=== PATIENT | male | born 1935 | race African-American/Black ===

== ENCOUNTER 2017-02-04 15:12 | Inpatient (IN) | payer MEDICARE, OTHER ==
--- NOTE | ~2017-02-04 | CN ---
Consultation Report [facility] [address] [place]. [address] NAME: MATHIEU STEWART : 36 STATUS : ADM IN PAT#: [id number] AGE: 82 ADM/REG DATE : 02/04/17 MR#: [id number] REPORT SERV DATE: 02/07/17 DICTATED BY: VASU ROBERTS DATE: 02/07/17 REPORT STATUS : Draft TRANSCRIBED BY: MODL DATE: 02/07/17 PALLIATIVE CARE CONSULTATION DATE OF CONSULTATION: 02/07/2017 ALLERGIES: NONE LISTED. REASON FOR CONSULTATION: Multisystem compromise in an elderly gentleman with end-stage renal disease. Mr. Stewart, an 82-year-old gentleman, was currently residing at [facility] after a stay at [facility] and, transitioned to [facility] where he evidently did not progress as hoped. In the course of care there, he was found to have rectal bleeding and was sent to the emergency room. Interestingly, despite being hypotensive, he was actually acidotic with a lactate of 4.8, he was hyperventilating with a pCO2 of 19, and his INR was elevated even though he has been on chronic Coumadin for some time. His hemoglobin at that time was actually elevated from his baseline. Since admission, he has had progression of his lactic acidemia, he has had labile blood pressures and difficulty assessing circulation. He has been unable to tolerate dialysis on at least 1 occasion. His last dialysis was 02/05. According to that record, his blood pressure was actually as low as 88/50. He did not undergo dialysis today. There has been some discussion in the family and with the medical staff regarding the appropriateness of resuscitation and what the long-term care options for this gentleman are. PAST MEDICAL HISTORY: From what I can tell from the records, the patient has what appears to be a significant ischemic cardiomyopathy in the setting of prior coronary disease and previous coronary bypass surgery. It appears that his ejection fraction was in the 50s; however, it appears he is now back in the 20s. One wonders if he has had a more recent [place]. He has chronic atrial fibrillation. Peripheral vascular insufficiency as well as a history of gout and hyperlipidemia. His sister who is at the bedside tells me he had hemorrhoid surgery about 3 years ago, required a Muñoz catheter for urinary retention, and that the catheter may have not been properly placed resulting in outflow renal failure which subsequently led him to dialysis. Interestingly I note that in 2011 when he was here with the abdominal pain complaints, many of the CT findings reported on today's scan in fact are chronic including an element of anasarca. SOCIAL HISTORY: The patient is a remote smoker but does not do so currently. He is currently residing in a nursing facility and some discussion as to where he will be going from there certainly has been a consideration as he is not really a rehab candidate and I do not know if the residential treatment within the nursing environment of a residential are going to be satisfactory to the family. Unfortunately, the patient has become unable to give us much of a history. His speech is garbled, intermittently audible but for the most part, not appropriate. This is relatively new for him. No history of illicit drug use. No Consultation Report [address] [place]. [address] NAME: MATHIEU STEWART : 36 STATUS : ADM IN PAT#: [id number] AGE: 82 ADM/REG DATE : 02/04/17 MR#: [id number] REPORT SERV DATE: 02/07/17 DICTATED BY: VASU ROBERTS DATE: 02/07/17 REPORT STATUS : Draft TRANSCRIBED BY: DENNY DATE: 02/07/17 alcohol use. 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 He does have family members but he is single. FAMILY HISTORY: Includes coronary disease, hypertension, diabetes, but as far as I can tell, no premature heart disease. The system review is limited by the patient's cognitive status. PHYSICAL EXAMINATION: GENERAL: Shows an elderly appearing gentleman who opens his eyes to his name. His speech is garbled and really incomprehensible. He does follow my finger when I ask him to. VITAL SIGNS: Current blood pressure is 120/70, his heart rate is 138 in atrial fibrillation, respiratory rate 16 and not labored. He is afebrile. HEENT: The head appears to be normocephalic. There is some bitemporal wasting. His eyes show muddy anicteric sclerae. His pupils appear to be reactive. Bilateral arcus senilis is noted. His dentition is present but markedly abnormal in terms of alignment. NECK: Auscultation of his neck shows no obvious bruits. No masses are appreciated. CHEST: Auscultation of his lungs shows essentially clear lung ortega at this time although in the bases, the breath sounds are decreased and I do hear some crackles. HEART: The heart shows an irregularly irregular rhythm. I do not really appreciate a murmur although there is one documented. No gallops are noted. His pulses are decreased throughout. ABDOMEN: The abdomen is soft, relatively nontender. Bowel sounds, in fact, are present. They are decreased. EXTREMITIES: Show 1+ edema and he does appear to have some general swelling of his entire body consistent with the findings on the CAT scan. No obvious breakdown or wounds are identified. NEUROLOGICAL: The patient appears to be grossly encephalopathic at this point. He does, by report of his sister, move all his extremities although I did not elicit or try to elicit any significant motor function. LABORATORY DATA: Reviewed and is as noted above. IMPRESSION: Impression is that of an elderly gentleman, 82 years old with a history of obstructive uropathy complicated by a Muñoz catheter placement that led eventually to dialysis approximately three years ago. He is now having significant evidence of debility, poor function and possible acute cognitive on top of chronic cognitive dysfunction. He does appear to have evidence of decrease in his cardiac function, lactic acidemia of uncertain etiology and now a new clot in the right subclavian area. He does have a previous brachiocephalic stent on the right side in the venous circulation. He remains in atrial fibrillation, he has evidence of coagulopathy possibly due to shock and/or nutritional factors. He has mildly elevated liver function tests but I do not see any evidence of significant or life-threatening liver failure. Consultation Report [address] [place]. [address] NAME: MATHIEU STEWART : 36 STATUS : ADM IN PAT#: [id number] AGE: 82 ADM/REG DATE : 02/04/17 MR#: [id number] REPORT SERV DATE: 02/07/17 DICTATED BY: VASU ROBERTS DATE: 02/07/17 REPORT STATUS : Draft TRANSCRIBED BY: DENNY DATE: 02/07/17 We will continue to follow the patient with you and it is our intention to help to facilitate some form of decision making as his condition stabilizes or even declines. He has been made a DNR which I think is highly appropriate. Whether or not hospice has a role in his management or not remains to be determined. We appreciate the opportunity to see your patient in consultation and we will certainly stay involved and try and assist with family communication, management of dynamics, and possible transition and care more towards comfort. Consultation is a total of 55 minutes. SEAMUS/DENNY Vasu Roberts M.D. / [id number] CC: Jude Mai M.D.
--- NOTE | ~2017-02-04 | CN ---
Consultation Report [facility] [address] [place]. [address] NAME: MATHIEU STEWART : 36 STATUS : ADM IN PAT#: [id number] AGE: 82 ADM/REG DATE : 02/04/17 MR#: [id number] REPORT SERV DATE: 02/05/17 DICTATED BY: JORI PERES DATE: 02/04/17 REPORT STATUS : Draft TRANSCRIBED BY: MODL DATE: 02/04/17 CONSULTATION DATE OF CONSULTATION: 02/04/2017 TIME: 1800 hours. Seen in MICU bed 4. HISTORY OF PRESENT ILLNESS: The patient is an 82-year-old male with longstanding history of end-stage renal disease and developed of nonischemic cardiomyopathy. Apparently, he was at a SNF today when he passed bright red blood per rectum. He also is treated for chronic hypotension on midodrine. Came into ER with diagnosis of chronic hypotension and possible shock with elevated lactic acid level. PAST MEDICAL HISTORY: Significant for atrial fibrillation, peripheral vascular disease, gout, GERD, anemia, chronic bilateral effusions, coronary artery disease status post CABG for [place] in the past, history of atrial fibrillation and ventricular tachycardia. ALLERGIES: INCLUDE LISINOPRIL. HOME MEDICATIONS: Include aspirin, furosemide, Lopressor, Renvela, simvastatin, and warfarin. PHYSICAL EXAMINATION: VITAL SIGNS: Currently, blood pressure 95/50, pulse 90, slightly irregular, saturation 90%. GENERAL: The patient is awake. HEENT: Head is normocephalic. Sclerae and conjunctiva are clear. NECK: Slight JVD. CHEST: Decreased breath sounds at the base. CARDIAC: S1 and S2. Slightly irregular. PMI is displaced laterally. ABDOMEN: Soft and nontender. Slight hepatomegaly. EXTREMITIES: Slight edema of lower extremities. There is marked edema of the right arm where an old shunt was. He does have a shunt withdrawal in the left arm. NEUROLOGIC: Grossly intact. LABORATORY DATA: Show procalcitonin 1.93. Sodium 137, potassium 5.2, chloride 94, CO2 of 25, BUN 49, creatinine 5.1, glucose 129, calcium 9.4, magnesium 2.2, albumin 3.1, total protein 6.6, direct bilirubin 1.8. Total bilirubin 1.8, alkaline phosphatase 243, ALT 118, AST 88, troponin 2.26. His GFR is less than 10. CBC shows an H and H of 13.5 and 37.9, white count 10,100, platelet count 117,000. PTT 47.9, INR 4.3, lactate 4.8. Chest x-ray shows cardiomegaly, small pleural effusion status post bypass surgery. Arterial blood gas showed a pH of 7.59, pCO2 of 19, PO2 of [address] of abdomen and pelvis showed bilateral moderate-sized pleural effusions, body anasarca, small amount Consultation Report [place] [id number] [facility] [place]. [address] NAME: MATHIEU STEWART : 36 STATUS : ADM IN PAT#: [id number] AGE: 82 ADM/REG DATE : 02/04/17 MR#: [id number] REPORT SERV DATE: 02/05/17 DICTATED BY: JORI PERES DATE: 02/04/17 REPORT STATUS : Draft TRANSCRIBED BY: MODL DATE: 02/04/17 of ascites, prostate enlarged, end-stage kidney disease seen. No mention is made of the liver at this time. IMPRESSION: 1. Chronic ischemic cardiomyopathy. 2. Atrial fibrillation. 3. Depressed ejection fraction. 4. Bilateral effusions. 5. End-stage renal disease. 6. Atrial fibrillation. PLAN: Continue present therapy. May need vasopressors for blood pressure control. Access will be difficult. RP/SPENSERL Jori Peres M.D. / [id number] CC: Jude Mai M.D.
--- NOTE | ~2017-02-04 | CN ---
Consultation Report [facility] [address] [place]. [address] NAME: MATHIEU STEWART : 36 STATUS : ADM IN PAT#: [id number] AGE: 82 ADM/REG DATE : 02/04/17 MR#: [id number] REPORT SERV DATE: 02/05/17 DICTATED BY: DIMAS GARDNER DATE: 02/04/17 REPORT STATUS : Draft TRANSCRIBED BY: MODEdna DATE: 02/04/17 CARDIOLOGY CONSULTATION DATE OF CONSULTATION: INDICATION: Systolic heart failure, coronary artery disease, possible sepsis with lactic acidosis. HISTORY: The patient is an 82-year-old male, who is usually cared for through the [facility]. He has end-stage renal disease, dialyzing Friday, Friday, Friday at [facility] in [place]. He has a history of three-vessel coronary artery disease and a reported history of coronary bypass surgery. He was admitted 12/22/2016 with increasing breathlessness to the [facility]. He is admitted through the ER today with weakness and bright red blood per rectum. He is an extremely poor historian. PAST MEDICAL HISTORY: Is from review of outside records. CURRENT HOME MEDICATIONS: Acetaminophen 325 q.6, ammonium lactate lotion applied twice a day, aspirin 81 a day, atorvastatin 10 at h.s., docusate sodium 100 b.i.d., famotidine 20 a day, hydrocodone 5/325 q.8 p.r.n., lisinopril 2.5 q.a.m., Megace 10 mL p.o. with breakfast, melatonin 1.5 mg at bedtime, metoprolol tartrate 12.5 b.i.d., midodrine 5 b.i.d., Nephrocaps daily, promethazine 25 q.6, and warfarin as directed. ALLERGIES OR INTOLERANCES: None known. SOCIAL HISTORY: Remote history of tobacco use. FAMILY HISTORY: Positive for hypertension, stroke, and coronary artery disease. PHYSICAL EXAMINATION: GENERAL: An 82-year-old white male, who is arousable and conversant, although answers are short with minimal insight. VITAL SIGNS: On arrival, blood pressure 80/55, pulse 109 and regular, respirations 19. SKIN: Dry with tenting. HEENT: Normocephalic. NECK: JVD is not elevated. No carotid bruits. CHEST: No crackles. CARDIAC: S1 variable. S2 singular. ABDOMEN: Tender, although there is no rebound. EXTREMITIES: Without edema. No clubbing. NEUROLOGIC: No focal deficits. Consultation Report [place] [facility] [id number] [place]. [address] NAME: MATHIEU STEWART : 36 STATUS : ADM IN PAT#: [id number] AGE: 82 ADM/REG DATE : 02/04/17 MR#: [id number] REPORT SERV DATE: 02/05/17 DICTATED BY: DIMAS GARDNER DATE: 02/04/17 REPORT STATUS : Draft TRANSCRIBED BY: MODL DATE: 02/04/17 LABORATORY DATA: On arrival, ECG suggested atrial fibrillation, although the quality of the tracing is extremely poor. BUN 49, creatinine 5.01, glucose 129, white count 10.1, hemoglobin 13.5, lactate 4.8. INR 4.3. IMPRESSION: 1. Severe chronic systolic heart failure with EF less than 20%. The patient has bilateral pleural effusions. 2. End-stage renal disease. 3. Lactic acidosis. He is presently undergoing evaluation for sepsis. He has been empirically started on antibiotics while cultures and other laboratory studies are pending. He may ultimately require inotropic support. We will try to get copies of his outside records from [facility]. Note that he apparently had an arteriogram, which showed a BARRIENTOS to the LAD vein graft to D1 and D2 as well as ramus. At that time, the echo from October was reported to show an ejection fraction of 55% with mild diastolic dysfunction. The current clinical presentation as well as echo findings are a dramatic departure from this baseline state. For the present, we will provide cardiac support. He is not in a position where invasive studies are appropriate. Further recommendations forthcoming. MARTIN/DENNY Dimas Gardner M.D. / [id number] CC: Jude Mai M.D. [facility]
--- NOTE | ~2017-02-04 | DS ---
Discharge Summary [address] [place]. [address] NAME: MATHIEU STEWART : 36 STATUS : DIS IN PAT#: [id number] AGE: 82 ADM/REG DATE : 02/04/17 MR#: [id number] REPORT SERV DATE: 02/21/17 DICTATED BY: ROSA ALLEN DATE: 02/20/17 REPORT STATUS : Draft TRANSCRIBED BY: MODEdna DATE: 02/20/17 Data Collection from hospitalization DISCHARGE DIAGNOSES: 1. End-stage cardiomyopathy. 2. End-stage renal disease. 3. Hypotension. 4. Hypoglycemia. 5. Anemia. 6. Gastroesophageal reflux disease. 7. Gout. 8. Hyperlipidemia. 9. Peripheral vascular disease. 10.Atrial fibrillation. 11.Coronary artery disease. 12.Remote myocardial infarction. 13.Former tobacco. CONSULTATIONS: 1. Gal Gardner M.D. 2. Abhishek Peres M.D. 3. Michoacano Roberts M.D. PROCEDURES PERFORMED: 1. CT scan of the abdomen and pelvis without contrast on 02/04/2017. 2. Injection of left internal jugular Angiocath under fluoroscopic assistance and over the wire exchange of left internal jugular Angiocath for a 7-Finnish triple-lumen central venous catheter on 02/04/2017. 3. Venous Doppler ultrasound of the right upper extremity on 02/05/2017. DISPOSITION: [facility]. HOSPITAL COURSE: This was an 82-year-old man who resided at a local skilled facility and chronically dialyzed at [facility] on Mondays, Wednesdays, and Fridays. He apparently was undergoing bathing and they noted blood per rectum and he was sent to the emergency room. He was found to have a blood pressure of 80/50, and apparently, he had underlying cardiac issue with a history of chronic hypotension, on midodrine. He was found to have a lactic acid of 4.8. INR level was elevated at 4.3 and he had been on Coumadin for chronic atrial fibrillation as well as aspirin. Hemoglobin was actually 13.5 with a mild decline in platelet count to 117. He was admitted to the hospital at this time for further evaluation and treatment. Upon admission, labs were going to be obtained as well as cultures. Antibiotics were going to began. A CT scan of the abdomen and pelvis without contrast was performed. The patient underwent placement of a central venous catheter. He was seen by Dr. Gal Gardner regarding systolic heart failure, coronary artery disease, possible sepsis with lactic acidosis. On his arrival, his ECG had suggested atrial fibrillation, although the quality of the tracing was extremely poor. Creatinine level was 5.01. White count was 10.1. He was currently Discharge Summary [address] [address] NAME: MATHIEU STEWART : 36 STATUS : DIS IN PAT#: [id number] AGE: 82 ADM/REG DATE : 02/04/17 MR#: [id number] REPORT SERV DATE: 02/21/17 DICTATED BY: ORSA ALLEN DATE: 02/20/17 REPORT STATUS : Draft TRANSCRIBED BY: DENNY DATE: 02/20/17 undergoing evaluation for sepsis. The patient had bilateral pleural effusions. He had severe chronic systolic heart failure with ejection fraction less than 20%. It was felt that he may ultimately require inotropic support. Echocardiogram in October had shown an ejection fraction of 55% with mild diastolic dysfunction. The current clinical presentation as well as echo findings were atraumatic departure from his baseline state. Cardiac support would be provided. He was not in a position where invasive studies were appropriate. He was also seen by Dr. Abhishek Peres. He was felt to have chronic ischemic cardiomyopathy, depressed ejection fraction, and atrial fibrillation. He also had bilateral effusions. His present therapy was going to be continued. It was felt that he may need vasopressor for blood pressure control. Access would be difficult. On 02/05/2017, he had 2+ edema of the right upper extremity. The patient was lethargic, but was responsive. He had been agitated during the night. INR level was 4.7. Hemodialysis therapy was performed. There was little change in his cardiovascular status. Venous Doppler ultrasound of the right upper extremity revealed occlusion of the subclavian on the right secondary to organized acute thrombus which also extended into the cephalic superficial system. The distal axillary brachial systems were patent. On 02/06/2017, he was minimally responsive. He was hypoglycemic. The next day, he seemed to be more awake. Breathing was less labored. He had an ejection fraction of 20%-25%. His prognosis remained poor. Dialysis had been stopped. He was seen in consultation by Dr. Michoacano Roberts. He agreed that the patient should be a DNR code status. A dose of IV vancomycin had been given. He remained lethargic, but responsive. There was no evidence for recent myocardial infarction on ECG. He did have some prolonged periods of apnea noted by the nursing staff. His condition continued to decline. In the early childhood assistant hours of 02/10/2017, he was found without blood pressure, pulse, or respirations. He was pronounced at 12:55 a.m. and released to the above-mentioned home. Information collected by: Teresa Perez I submit the above information as my discharge summary. TG/MODL Rosa Allen M.D. / [id number] CC: Fredo Samayoa M.D. Robert Warren Goldmann, M.D.
--- NOTE | ~2017-02-04 | HP ---
History And Physical [place] [id number] [place]. [address] NAME: MATHIEU STEWART : 37 STATUS : ADM IN [facility]#: [id number] AGE: 82 ADM/REG DATE : 02/04/17 MR#: [id number] REPORT SERV DATE: 02/04/17 DICTATED BY: ROSA ALLEN DATE: 02/04/17 REPORT STATUS : Draft TRANSCRIBED BY: MODEdna DATE: 02/04/17 DATE OF ADMISSION: 02/04/2017 INDICATION FOR ADMISSION: Shock. HISTORY OF PRESENT ILLNESS: Mr. Stewart is an 82-year-old male who resides at a local skilled facility and chronically dialyzes at [facility] on Friday, Friday, and Friday. He apparently was undergoing bathing, and they noted blood per rectum and sent him to the emergency room. He was found to have a blood pressure of 80/50, and apparently he has underlying cardiac issues with history of chronic hypotension on midodrine. He was noted to have a lactic acid of 4.8. His ABG demonstrated pH of 7.59, pCO2 of 19, pO2 of 129. His INR was elevated at 4.3 as he has been on Coumadin for chronic atrial fib as well as aspirin. His hemoglobin was actually 13.5 with a mild decline in platelet count to 117. He was admitted for further evaluation of his shock. PAST MEDICAL HISTORY: 1. End-stage renal disease, dialyzing Friday, Friday, Friday at [facility]. 2. Coronary artery disease, prior CABG 1 and remote [place]. 3. Atrial fibrillation; chronic atrial fibrillation with possible history of remote ventricular tachycardia. 4. Peripheral vascular disease. 5. Hyperlipidemia. 6. Gout. 7. Gastroesophageal reflux disease. 8. Anemia. 9. Chronic bilateral pleural effusions. 10.Hemorrhoidectomy. SOCIAL HISTORY: [facility]. No tobacco use for 18-20 years. No alcohol use. 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 He is single and has a supportive son/brother. FAMILY HISTORY: Positive for diabetes, hypertension, coronary artery disease. ALLERGIES: NONE KNOWN. MEDICATIONS: Coumadin, aspirin, lisinopril, Megace, melatonin, Lopressor, midodrine, Nephrocaps, Phenergan, acetaminophen, ammonium lactate ointment, Lipitor, Colace, Pepcid, and hydrocodone. REVIEW OF SYSTEMS: The patient opens eyes, focalizes minimally, denies pain, denies shortness of breath. Otherwise 12-point review of systems is negative. PHYSICAL EXAMINATION: History And Physical [address] [place]. [address] NAME: MATHIEU STEWART : 37 STATUS : ADM IN PAT#: [id number] AGE: 82 ADM/REG DATE : 02/04/17 MR#: [id number] REPORT SERV DATE: 02/04/17 DICTATED BY: ROSA ALLEN DATE: 02/04/17 REPORT STATUS : Draft TRANSCRIBED BY: DENNY DATE: 02/04/17 VITAL SIGNS: Blood pressure 80/50, pulse 82, respiratory rate 22, temperature 98.2. HEENT: Eyes; no scleral icterus. Pupils reactive symmetrically. Nares patent. No discharge. Throat, no injection. Mucous membranes somewhat dry. NECK: No thyromegaly, masses, or bruits. CHEST/LUNGS: Late crackles bilaterally. No wheezes, no rhonchi. CARDIAC: Irregular rhythm, 1/6 to 2/6 systolic ejection murmur. No gallop. No rub. ABDOMEN: Supple. Normoactive bowel sounds. Questionable palpation of liver, unable to palpate spleen, nontender. /RECTAL: Not performed. EXTREMITIES: No edema. No calf tenderness. DERMIS: No rash. Skin is somewhat dry on lower extremities. NEUROLOGIC: The patient moves extremities. Cranial nerves grossly intact, will not cooperate for exam. IMPRESSION: 1. Shock/questionable chronic hypotension versus cardiogenic shock versus sepsis. 2. Elevated lactic acid and elevated transaminases, possibly related to sock liver. 3. End-stage renal disease, dialyzing Friday, Friday, Friday at [facility]. 4. Coronary artery disease with remote single vessel CABG. 5. Remote myocardial infarction. 6. Atrial fibrillation chronically and typically on aspirin and Coumadin anticoagulation. 7. Questionable history of ventricular tachycardia. 8. Peripheral vascular disease. 9. Hyperlipidemia. 10.Gout. 11.Gastroesophageal reflux disease. 12.History of anemia, currently stable. 13.Chronic bilateral pleural effusions. 14.Coagulopathy with an INR of 4.3, holding Coumadin and aspirin. PLAN: 1. Lab. 2. Critical care consult. 3. Cardiology to see. 4. Cultures and antibiotics. 5. Hemodialysis on 02/05/2017. CG/DENNY Rosa Allen M.D. / [id number] CC: History And Physical [address] [place]. [address] NAME: MATHIEU STEWART : 37 STATUS : ADM IN [facility]#: [id number] AGE: 82 ADM/REG DATE : 02/04/17 MR#: [id number] REPORT SERV DATE: 02/04/17 DICTATED BY: ROSA ALLEN DATE: 02/04/17 REPORT STATUS : Draft TRANSCRIBED BY: DENNY DATE: 02/04/17 Rosa Allen M.D.
[2017-02-04 14:14] LABS: BASOPHILS 0 %; EOSINOPHILS 0 %; HEMATOCRIT 37.9 % (40.0-51.0); HEMOGLOBIN 13.5 g/dL (13.6-17.8); IMMATURE GRANULOCYTES 0.6 %; IMMATURE GRANULOCYTES ABSOLUTE 0.06 10/3/uL (0.0-0.11); LYMPHOCYTES 3.9 %; MANUAL DIFF NO %; MEAN CORPUS HGB CONC 35.6 g/dL (32.0-36.0); MEAN CORPUSCULAR HEMOGLOB 35.4 pg (26.0-34.0); MEAN CORPUSCULAR VOLUME 99.5 fL (80-100); MEAN PLATELET VOLUME 11.4 fL (9.2-13.0); MONOCYTES 6.3 %; MONOCYTES ABSOLUTE 0.64 10/3/uL (0.21-1.20); NEUTROPHILS 89.2 %; NEUTROPHILS ABSOLUTE 9.04 10/3/uL (2.02-8.40); PLATELET COUNT 117 10/3/uL (150-400); RBC DISTRIBUTION WIDTH 21.3 % (12.0-16.0); RED CELL COUNT 3.81 10/6/uL (4.7-6.1); WHITE BLOOD CELLS 10.1 10/3/uL (4.5-10.5)
[2017-02-04 14:23] LABS: INTERNATIONAL NORMAL RATI 4.3 UNITS (-); PARTIAL THROMBO TIME 47.9 SEC (22.5-37.2)
[2017-02-04 14:24] LABS: PROTIME (NOT ORD) 40.9 SEC (12.0-14.5)
[2017-02-04 14:30] LABS: CHLORIDE, SERUM 94 MMOL/L (96-112); CREATININE 5.01 MG/DL (0.70-1.30); GFR AFRICAN AMERICAN 12 ML/MIN (>=60); GFR NON AFRICAN AMERICAN 10 ML/MIN (>=60); SODIUM, SERUM 137 MMOL/L (135-148)
[2017-02-04 14:34] LABS: BUN (BLOOD UREA NITROGEN) 49 MG/DL (6-23); CALCIUM, SERUM 9.4 MG/DL (8.5-10.4); CHEST PAIN PROFILE TAT 0 Hrs 26 Mins; CO2 (CARBON DIOXIDE) 25 MMOL/L (24-34); GLUCOSE, SERUM 129 MG/DL (60-99); TROPONIN I 2.26 NG/ML (<0.05)
[2017-02-04 14:35] LABS: POTASSIUM, SERUM 5.2 MMOL/L (3.5-5.3)
[2017-02-04 15:04] LABS: ALBUMIN 3.1 G/DL (3.5-5.0); SGPT(ALT) 118 U/L (5-65); TOTAL PROTEIN 6.6 G/DL (6.0-8.5)
[2017-02-04 15:05] LABS: ALKALINE PHOSPHATASE 243 U/L (45-117); DIRECT BILIRUBIN 1.8 MG/DL (0.0-0.4); SGOT(AST) 88 U/L (5-40); TOTAL BILIRUBIN 1.8 MG/DL (0-1.2)
[2017-02-04 15:07] LABS: ALLENS TEST Pos; BE (BASE EXCESS) -1.4 MEQ/L (0 +/- 2.5); CARBOXYHEMOGLOBIN 1.1 % (0-3); DEVICE Nasal Cannula @ 3 L/; HCO3 (ACTUAL BICARBONATE) 18.1 MEQ/L (23-27); HEMOBLOGIN CONTENT 13.2 G/DL (14-18); INSTRUMENT SERIAL # 8087; METHEMOGLOBIN 0.1 % (0-3); O2 CONTENT 18.3 VOL% (18-24); OPERATOR ID 14382; PCO2 (CO2 TENSION) 19 MMHG (35-45); PO2 (O2 TENSION) 129 MMHG (79-93); SAMPLE Arterial; pH 7.59 (7.37-7.43)
[~2017-02-04 15:12] MED LIST: ASAB PO; ATEN100 PO; C2 PO; CALTRA600D PO; DIALYSIS IV; DIOV160 PO; DSS PO; ENULOSE PO; FLAGYL250 MG PO; FLOMAX4 PO; GLUCCHONDR PO; HALF81 PO; HYT5 PO; KLOR-CON 1010 MEQ PO; L40 PO; LAC-HYDRIN TOP; LASIX PO; LEVOXYL50 MCG PO; LIPITOR10 PO; LONITEN10 PO; LONITEN2.5 PO; LOP25 PO; MEGACEUDL PO; MELA3 PO; MINOXIDIL PO; MIRALAXPKT PO; MONODOX100 MG PO; MULTIVIT/MIN PO; MULTIVITAMI1 PO; MYLUD PO; NEPHRO PO; NORCO1 TA1 PO; PCET PO; PEP20 PO; PR25 PO; PRILOSEC40 MG PO; PRIN2.5 PO; PROAMAT5 PO; T PO; TERAZOSIN HCL PO; VITAMIN C100 MG PO; Z100 PO; ZOCOR40 PO; [UNRECOGNIZED DRUG - OTHER] TOP
[2017-02-04 16:36] LABS: PROCALCITONIN 1.93 ng/mL (<0.5)
[2017-02-05 03:53] LABS: BASOPHILS 0 %; EOSINOPHILS 0 %; HEMOGLOBIN 11.8 g/dL (13.6-17.8); IMMATURE GRANULOCYTES 0.5 %; IMMATURE GRANULOCYTES ABSOLUTE 0.05 10/3/uL (0.0-0.11); LYMPHOCYTES 4.3 %; LYMPHOCYTES ABSOLUTE 0.44 10/3/uL (0.67-4.30); MEAN CORPUSCULAR HEMOGLOB 35.9 pg (26.0-34.0); MEAN CORPUSCULAR VOLUME 99.7 fL (80-100); MEAN PLATELET VOLUME 11.3 fL (9.2-13.0); MONOCYTES 4.7 %; MONOCYTES ABSOLUTE 0.48 10/3/uL (0.21-1.20); NEUTROPHILS 90.5 %; NEUTROPHILS ABSOLUTE 9.21 10/3/uL (2.02-8.40); PLATELET COUNT 97 10/3/uL (150-400); RBC DISTRIBUTION WIDTH 20.8 % (12.0-16.0); RED CELL COUNT 3.29 10/6/uL (4.7-6.1); WHITE BLOOD CELLS 10.2 10/3/uL (4.5-10.5)
[2017-02-05 03:54] LABS: HEMATOCRIT 32.8 % (40.0-51.0); MANUAL DIFF NO %
[2017-02-05 04:06] LABS: ALBUMIN 2.8 G/DL (3.5-5.0); CALCIUM, SERUM 8.9 MG/DL (8.5-10.4); CHLORIDE, SERUM 101 MMOL/L (96-112); CO2 (CARBON DIOXIDE) 23 MMOL/L (24-34); CREATININE 5.33 MG/DL (0.70-1.30); GFR AFRICAN AMERICAN 11 ML/MIN (>=60); GFR NON AFRICAN AMERICAN 9 ML/MIN (>=60); POTASSIUM, SERUM 4.5 MMOL/L (3.5-5.3); SODIUM, SERUM 142 MMOL/L (135-148)
[2017-02-05 04:07] LABS: BUN (BLOOD UREA NITROGEN) 54 MG/DL (6-23); GLUCOSE, SERUM 82 MG/DL (60-99); PHOSPHORUS, SERUM 5.9 MG/DL (2.5-4.5)
[2017-02-05 05:51] LABS: PROCALCITONIN 1.91 ng/mL (<0.5)
[2017-02-05 07:56] LABS: FREE T4 0.82 NG/DL (0.76-1.46)
[2017-02-05 08:25] LABS: INTERNATIONAL NORMAL RATI 4.7 UNITS (-); PARTIAL THROMBO TIME 52.4 SEC (22.5-37.2)
[2017-02-05 08:30] LABS: PROTIME (NOT ORD) 43.7 SEC (12.0-14.5)
[2017-02-05 10:20] LABS: ALLENS TEST Pos; BE (BASE EXCESS) 1.8 MEQ/L (0 +/- 2.5); CARBOXYHEMOGLOBIN 0.3 % (0-3); DEVICE NC; HCO3 (ACTUAL BICARBONATE) 22.8 MEQ/L (23-27); HEMOBLOGIN CONTENT 12.9 G/DL (14-18); INSTRUMENT SERIAL # 8083; METHEMOGLOBIN 0.3 % (0-3); O2 CONTENT 18.1 VOL% (18-24); OPERATOR ID 13715; PCO2 (CO2 TENSION) 26 MMHG (35-45); PO2 (O2 TENSION) 147 MMHG (79-93); SAMPLE Arterial; pH 7.56 (7.37-7.43)
[2017-02-06 09:19] LABS: BASOPHILS 0.1 %; BASOPHILS ABSOLUTE 0.01 10/3/uL (0.0-0.16); EOSINOPHILS 0 %; HEMATOCRIT 32.2 % (40.0-51.0); HEMOGLOBIN 11.4 g/dL (13.6-17.8); IMMATURE GRANULOCYTES 0.8 %; IMMATURE GRANULOCYTES ABSOLUTE 0.09 10/3/uL (0.0-0.11); LYMPHOCYTES 2.3 %; LYMPHOCYTES ABSOLUTE 0.25 10/3/uL (0.67-4.30); MEAN CORPUS HGB CONC 35.4 g/dL (32.0-36.0); MEAN CORPUSCULAR HEMOGLOB 35.4 pg (26.0-34.0); MEAN PLATELET VOLUME 11.2 fL (9.2-13.0); MONOCYTES 7.4 %; NEUTROPHILS 89.4 %; NEUTROPHILS ABSOLUTE 9.68 10/3/uL (2.02-8.40); PLATELET COUNT 104 10/3/uL (150-400); RBC DISTRIBUTION WIDTH 21.1 % (12.0-16.0); RED CELL COUNT 3.22 10/6/uL (4.7-6.1); WHITE BLOOD CELLS 10.8 10/3/uL (4.5-10.5)
[2017-02-06 09:20] LABS: MANUAL DIFF NO %
[2017-02-06 09:33] LABS: CALCIUM, SERUM 9.5 MG/DL (8.5-10.4); CHLORIDE, SERUM 103 MMOL/L (96-112); CO2 (CARBON DIOXIDE) 20 MMOL/L (24-34); CREATININE 4.87 MG/DL (0.70-1.30); GFR AFRICAN AMERICAN 12 ML/MIN (>=60); GFR NON AFRICAN AMERICAN 10 ML/MIN (>=60); GLUCOSE, SERUM 88 MG/DL (60-99); PHOSPHORUS, SERUM 5.2 MG/DL (2.5-4.5); POTASSIUM, SERUM 4.7 MMOL/L (3.5-5.3); SODIUM, SERUM 144 MMOL/L (135-148)
[2017-02-06 09:34] LABS: BUN (BLOOD UREA NITROGEN) 43 MG/DL (6-23)
== END 2017-02-10 03:24 | disposition expired | DRG 291 ==
LOC: ER 15:12 → MIC 15:52 → 4EA 02-07 16:48
PROVIDERS: Emergency Medicine; Internal Medicine; Internal Medicine Nephrology
PROC: 05HN33Z Insertion of Infusion Device into Left Internal Jugular Vein, Percutaneous Approach (ICD-10-PCS; 2017-02-04)
PROC: 5A1D00Z (ICD-10-PCS; principal; 2017-02-05)
DX: I50.23 Acute on chronic systolic (congestive) heart failure (principal); N18.6 End stage renal disease; R57.0 Cardiogenic shock; G93.41 Metabolic encephalopathy; J90 Pleural effusion, not elsewhere classified; I82.621 Acute embolism and thrombosis of deep veins of right upper extremity; E87.2 Acidosis; I95.89 Other hypotension; I25.5 Ischemic cardiomyopathy; I48.2 Chronic atrial fibrillation; I25.10 Atherosclerotic heart disease of native coronary artery without angina pectoris; Z95.1 Presence of aortocoronary bypass graft; I25.2 Old myocardial infarction; I73.9 Peripheral vascular disease, unspecified; E78.5 Hyperlipidemia, unspecified; K21.9 Gastro-esophageal reflux disease without esophagitis; Z87.891 Personal history of nicotine dependence; Z83.3 Family history of diabetes mellitus; Z82.49 Family history of ischemic heart disease and other diseases of the circulatory system; Z79.01 Long term (current) use of anticoagulants; Z79.82 Long term (current) use of aspirin; Z79.899 Other long term (current) drug therapy; Z99.2 Dependence on renal dialysis; Z66 Do not resuscitate; Z51.5 Encounter for palliative care
CPT/HCPCS: 36415; 36580; 36600; 71010; 74176; 77001; 80048; 80069; 80076; 80202; 82140; 82330; 82533; 82803; 82805; 82947; 82962; 83605; 83735; 83880; 84100; 84132; 84145; 84295; 84439; 84443; 84484; 85014; 85025; 85610; 85730; 86850; 86900; 86901; 86920; 87040; 87641; 93005; 93306; 93971; 99291; A9270-GY; C1769; G0257; J1610; J1630; J2543; J3370; P9047; Q9967